=== PATIENT | male | born 2000 | race Caucasian/White ===

== ENCOUNTER 2023-04-18 01:18 | Emergency (ER) | payer OTHER ==
[2023-04-18 01:27] VITALS: BP 111/70; PULSE 60; RESP 18; TEMP 98; BMI 24.4
[2023-04-18] MEDS ORDERED: TETRACAINE 0.5% OPHTH SOLN 2 ML BOTTLE ONE (02:02)
[2023-04-18] MEDS ORDERED: FLUORESCEIN NA 1 EA STRIP ONE (02:02)
[2023-04-18] MEDS: FLUORESCEIN NA 1 EA STRIP OS ONE (02:21)
== END 2023-04-18 03:17 | disposition home or self-care (01) ==
LOC: JER 01:18
DX: H57.12 Ocular pain, left eye (principal); T15.92XA Foreign body on external eye, part unspecified, left eye, initial encounter; Z20.822 Contact with and (suspected) exposure to COVID-19
CPT/HCPCS: 0241U-QW; 99283-25